=== PATIENT | male | born 1980 | race Caucasian/White ===

== ENCOUNTER 2018-02-01 00:08 | Emergency (ER) | payer SELFPAY ==
[2018-02-01] MEDS ORDERED: LIDOCAINE 1% (MDV) 10 ML INJ INJ (00:32)
[2018-02-01] MEDS: DIPHTH/TET/ACEL PERTUSS (ADULT) 0.5 ML VIAL IM* (00:42)
[2018-02-01] MEDS: LIDOCAINE 1% (MPF) 5 ML VIAL INJ (00:46)
== END 2018-02-01 01:55 | disposition home or self-care (01) ==
LOC: FTE 00:08
DX: S01.511A Laceration without foreign body of lip, initial encounter (principal); S06.0X0A Concussion without loss of consciousness, initial encounter; Y04.0XXA Assault by unarmed brawl or fight, initial encounter; Z23 Encounter for immunization
CPT/HCPCS: 12011; 70450; 70486; 90471; 90715; 99284-25

== ENCOUNTER 2018-02-17 18:44 | Emergency (ER) | payer SELFPAY | END 2018-02-17 19:58 | disposition home or self-care (01) | LOC: FTE 18:44 | DX: Z48.02 Encounter for removal of sutures (principal) | CPT/HCPCS: 99281 ==